=== PATIENT | female | born 1995 | race Caucasian/White ===

== ENCOUNTER → 2018-02-07 | Outpatient (CLI) | payer OTHER | LOC: M WUC 14:16 | DX: M25.511 Pain in right shoulder (principal) | CPT/HCPCS: 73030 ==

== ENCOUNTER 2018-04-12 20:06 | Emergency (ER) | payer OTHER | END 2018-04-12 21:32 | disposition home or self-care (01) | LOC: M ED 20:06 | DX: J06.9 Acute upper respiratory infection, unspecified (principal); E78.5 Hyperlipidemia, unspecified | CPT/HCPCS: 71046 ==